=== PATIENT | male | born 1990 | race Two or more races ===

== ENCOUNTER 2024-05-20 16:38 | Emergency (ER) | payer MEDICAID, SELFPAY ==
[2024-05-20 16:39] VITALS: BMI 43.5
[2024-05-20 16:45] VITALS: BP 148/97; PULSE 84; RESP 20; TEMP 37.1; O2SAT 95
--- NOTE | 2024-05-20 17:05 | XR_ITS ---
Examination: Testicular sonography complete TECHNIQUE: Grayscale sonographic images testes, assessment arterial inflow and venous outflow, Doppler spectral analysis, color flow analysis Exam date and time: May 20, 2024 1746 hours INDICATIONS: Bilateral testicular pain beginning 3 weeks ago with lump on the right testicle noticed beginning 20 years ago FINDINGS: Right testis is 4.4 x 2.2 x 3.1 cm Epididymis 21 mm 13 mm epididymal cyst Arterial flow to the testicle. No testicular mass Moderate varicocele Small hydrocele Left testis 4.1 x 2.3 x 2.9 cm Epididymis 14 mm Arterial flow to the testicle. No testicular mass. Moderate varicocele Small hydrocele IMPRESSION: No testicular torsion or testicular mass Small benign epididymal cyst on the right Bilateral varicoceles
--- NOTE | 2024-05-20 17:16 | EDRME_ITS ---
Rapid Medical Screening Exam [facility] Arrival date/time: 05/20/24 16:38 This is a 34-year-old male comes in with complaints of testicular pain for the last 3 weeks. Patient reports a dull pain that has not gone away. Patient denies any urinary symptoms. Patient denies any past medical history. Chief Complaint: Urogenital-Male Time Seen by Provider: 05/20/24 17:04 Vital signs: Vital Signs Temperature 98.7 F 05/20/24 16:45 Pulse Rate 84 05/20/24 16:45 Respiratory Rate 20 05/20/24 16:45 Blood Pressure 148/97 H 05/20/24 16:45 Pulse Oximetry (%) 95 05/20/24 16:45 Oxygen Delivery Method Room Air 05/20/24 16:45
[2024-05-20 17:38] LABS: Collection Type, Urine Voided
[2024-05-20 17:44] LABS: Basophils # (Auto) 0.1 Thou/mm3 (0.0-0.2); Basophils % (Auto) 2 % (0-2.5); Eosinophils # (Auto) 0.6 Thou/mm3 (0.0-0.5); Eosinophils % (Auto) 7 % (0-10); Hematocrit 45.5 % (41.0-53.0); Hemoglobin 15.1 g/dL (13.5-16.0); Immature Granulocytes % (Auto) 0 % (0-0); Immature Granulocytes Auto 0.01 Thou/mm3 (0.00-0.00); Lymphocytes # (Auto) 2.9 Thou/mm3 (1.0-4.8); Lymphocytes % (Auto) 36 % (10-50); Mean Corpuscular HGB Conc 33.2 g/dl (31.0-37.0); Mean Corpuscular Hemoglobin 27.4 pg (25.0-35.0); Mean Corpuscular Volume 82 fL (80-100); Monocytes # (Auto) 0.4 Thou/mm3 (0.0-0.8); Monocytes % (Auto) 4 % (0-12); Neutrophils # (Auto) 4.3 Thou/mm3 (1.8-7.7); Neutrophils % (Auto) 52 % (37-80); Nucleated Red Blood Cell % 0 /100 WBC (0); Platelet Count 334 Thou/mm3 (140-440); Red Blood Count 5.52 Miln/mm3 (4.50-5.90); White Blood Count 8.3 Thou/mm3 (3.8-10.6)
[2024-05-20 17:50] LABS: Bacteria,Urine Rare; Bilirubin,Urine Negative (Negative); Blood,Urine 1+ (Negative); Clarity,Urine Clear (Clear/Hazy); Color,Urine Yellow (Lt Yel-Yel); Culture Indicated,Urine Not Indicated; Glucose, Urine Negative (Negative); Ketones,Urine Negative (Negative); Leukocyte Esterase,Urine Negative (Negative); Nitrite,Urine Negative (Negative); PH,Urine 5.5 (5.0-7.0); Protein,Urine 1+ (Neg - Trace); RBC,Urine 5 /hpf (0-3); Specific Gravity,Urine 1.037 (1.001-1.035); Squamous Epithelial Cell,Urine 1 /hpf (0-5); WBC,Urine 1 /hpf (0-5)
[2024-05-20 18:10] LABS: Alanine Aminotransferase 69 U/L (10-49); Albumin, Serum 4.5 gm/dL (3.5-5.0); Albumin/Globulin Ratio 1.6 (1.2-2.2); Alkaline Phosphatase 75 U/L (46-116); Anion Gap 11 (7-16); Aspartate Amino Transferase 23 U/L (0-34); BUN/Creatinine Ratio 11 Ratio (12-20); Bilirubin,Total 0.8 mg/dL (0.3-1.2); Blood Urea Nitrogen 11 mg/dL (9-23); Calcium 9.1 mg/dL (8.3-10.6); Calcium (Corrected) 9.1 mg/dL (8.5-10.1); Carbon Dioxide 24.1 mMol/L (20.0-31.0); Chloride 107 mMol/L (98-107); Estimated Creatinine Clearance 141.3 mL/min (>60); Globulin 2.8 gm/dL (2.3-3.5); Glucose 112 mg/dL (74-106); Osmolality,Calculated 283 (275-295); Potassium 3.5 mMol/L (3.4-5.1); Sodium 142 mMol/L (136-145); Total Protein 7.3 gm/dL (5.7-8.2); eGFR > 60 See Note
[2024-05-20] MEDS: METOCLOPRAMIDE INJ 5 MG/ML VIAL 2 ML 10 MG IM (20:54)
[2024-05-20] MEDS: KETOROLAC INJ 60 MG/2 ML VIAL IM (20:55)
--- NOTE | 2024-05-20 22:02 | PD.EDMALE ---
ED Male Genitalurinary RME/HPI General Chief complaint: Urogenital-Male Stated complaint: TESTICULAR PAIN, LUMP ON RIGHT TESTICLE Time Seen by Provider: 05/20/24 17:04 Arrival date/time: 05/20/24 16:38 This is a 34-year-old male comes in with complaints of testicular pain for the last 3 weeks. Patient reports a dull pain that has not gone away. Patient denies any urinary symptoms. Patient denies any past medical history. Patient denies engaging into anal sex. RME / HPI RME / HPI Narrative: 05/20/24 16:38 This is a 34-year-old male comes in with complaints of testicular pain for the last 3 weeks. Patient reports a dull pain that has not gone away. Patient denies any urinary symptoms. Patient denies any past medical history. Related Data Home Medications ?Medication ?Instructions ?Recorded ?Confirmed minerals 1 tab PO QDAY 04/07/21 04/07/21 omega 4-mmx-sol-fish oil 1,000 mg 1 cap PO QDAY 04/07/21 04/07/21 (120 mg-180 mg) capsule (Fish Oil) Previous Rx's ?Medication ?Instructions ?Recorded lidocaine HCl 2 % mucosal jelly 1 applic topical BID PRN pain #30 04/07/21 mL ibuprofen 800 mg tablet 800 mg PO TID PRN pain #30 tabs 01/01/23 metoclopramide HCl 10 mg tablet 10 mg PO .BID prn PRN nausea and 08/11/23 (Reglan) vomiting #20 tabs ibuprofen 800 mg tablet 800 mg PO Q6H PRN pain #14 tabs 05/20/24 Allergies Allergy/AdvReac Type Severity Reaction Status Date / Time No Known Allergies Allergy Verified 05/20/24 16:39 Review of Systems Review of Systems Systems Reviewed: All systems reviewed, normal except as documented Past Medical History Past Medical History CARDIAC: Negative Congestive Heart Failure RESPIRATORY: Negative Chronic Obstructive Pulmonary Disease (COPD) GENITOURINARY: Negative Renal Disease ENDOCRINE: Negative Diabetes Mellitus Type 1 or Diabetes Mellitus Type 2 HEMATOLOGIC: Negative Sickle Cell Disease Social History SMOKING STATUS: Never smoker SUBSTANCE USE: does not use Travel History EBOLA RISK: No ED Exam General General appearance: Present alert and in no apparent distress Head Head exam: Present atraumatic Eye Eye exam: Present normal appearance, PERRL and EOMI ENT ENT exam: Present normal exam, normal oropharynx and mucous membranes moist Neck Neck exam: Present normal inspection, full ROM and trachea midline Chest Chest inspection: Present normal inspection and symmetric chest wall rise Respiratory Respiratory exam: Present normal lung sounds bilaterally Cardiovascular Cardiovascular exam: Present regular rate, normal rhythm and normal heart sounds Abdominal Exam Abdominal exam: Present soft exam: Present other (No testicular tenderness no erythema) Extremities Exam Extremities exam: Present normal inspection and full ROM Back Exam Back exam: Present normal inspection and full ROM Neurological Exam Neurological exam: Present alert, oriented X3 and CN II-XII intact Psychiatric Psychiatric exam: Present normal affect and normal mood Skin Skin exam: Present warm, dry, intact and normal color Course Quality Measures none Orders Category Date Time Status US testicular Stat Exams 05/20/24 17:05 Completed CBC Stat Lab 05/20/24 17:23 Completed Comprehensive Metabolic Panel Stat Lab 05/20/24 17:23 Completed Urinalysis, C/S if Indicated Stat Lab 05/20/24 17:14 Completed HYDROcodone*/APAP 5/325 [[place] 5/325] Med 05/20/24 22:01 Discontinued 1 tab PO X1 ONE Ketorolac Inj [Toradol Inj] Med 05/20/24 17:04 Discontinued 60 mg IM X1 ONE Metoclopramide Inj [Reglan Inj] Med 05/20/24 17:04 Discontinued 10 mg IM X1 ONE cefTRIAXone [Rocephin] 1,000 mg Med 05/20/24 22:01 Discontinued Lidocaine 1% 20 ml [Xylocaine 1% 20 ML] 2.1 ml IM X1 Vital Signs Vital signs: Vital Signs Temperature 98.7 F 05/20/24 16:45 Pulse Rate 84 05/20/24 16:45 Respiratory Rate 20 05/20/24 16:45 Blood Pressure 148/97 H 05/20/24 16:45 Pulse Oximetry (%) 95 05/20/24 16:45 Oxygen Delivery Method Room Air 05/20/24 16:45 Urogenital - Male MDM Narrative MDM Narrative:: CBC unremarkable. CMP shows slightly elevated liver function. Urine shows some blood. Patient states he felt better upon's second assessment. Patient was having some pain to right testicle. Patient denies any anal sex or multiple sex partners however does have pain to the right testicle. Ultrasound negative. Patient does have some urgency and did have blood in his urine. Will culture his urine and send a GC chlamydia. I am going to treat patient for epididymitis patient given a dose of Rocephin. And will be started on doxycycline. Patient told to follow-up with a primary provider in 1 to 2 days. Come back to the emergency room if symptoms change or worsen. Patient told to follow-up with urine culture with primary provider. testicular us: FINDINGS: Right testis is 4.4 x 2.2 x 3.1 cm Epididymis 21 mm 13 mm epididymal cyst Arterial flow to the testicle. No testicular mass Moderate varicocele Small hydrocele Left testis 4.1 x 2.3 x 2.9 cm Epididymis 14 mm Arterial flow to the testicle. No testicular mass. Moderate varicocele Small hydrocele IMPRESSION: No testicular torsion or testicular mass Small benign epididymal cyst on the right Bilateral varicoceles Patient data External records reviewed:: [facility] previous records Clinical information provided by:: patient Social determinants that could affect healthcare access:: none Patient has the following chronic illnesses:: none How is presenting disease/condition affected by chronic disease/condition?: no chronic disease Evaluation data The following diagnostics were reviewed and interpreted by me:: lab results and radiology exam(s) Lab and/or radiology exams considered but not ordered:: none Interpretation Summary: see note Medications / Prescriptions Medications or Prescriptions considered but not ordered:: none Medication administrations:: Medication Administration History Discontinued Medications Hydrocodone Bitart/Acetaminophen (Hydrocodone/[place] 5/325 Tablet) 1 tab PO X1 ONE Stop: 05/20/24 22:02 Last Admin: 05/20/24 22:34 Dose: 1 tab Documented By: KG Ceftriaxone Sodium 1,000 mg/ (Lidocaine HCl 2.1 ml) 0 mg IM X1 ONE Stop: 05/20/24 22:02 Last Admin: 05/20/24 22:34 Dose: 1,000 mg Documented By: KG Ketorolac Tromethamine (Ketorolac Inj 60 Mg/2 Ml Vial) 60 mg IM X1 ONE Stop: 05/20/24 17:05 Last Admin: 05/20/24 20:55 Dose: 60 mg Documented By: KG Metoclopramide HCl (Metoclopramide Inj 5 Mg/Ml Vial 2 Ml) 10 mg IM X1 ONE; Protocol Stop: 05/20/24 17:05 Last Admin: 05/20/24 20:54 Dose: 10 mg Documented By: KG see mar Consultations Consultation(s) initiated? (list below): No Diagnosis Urogenital Male Differential Diagnosis: urinary tract infection, urethritis and epididymitis Most likely diagnosis given after review of the tests above:: uti Admission Indicated Admission indicated?: not indicated Admission Request Was there a request for admission?: No Disposition Plan Disposition Plan: Discharge Discharge Attestation Discharge Attestation: The patient and all family members were given an opportunity to ask questions and understood the discharge instructions. Discharge instructions specifically effects, indications for sooner follow up or return to the emergency department, and the expected course of current diagnosis. Patient condition: Stable Discharge Plan Plan Patient Disposition: HOME (Self Care) Patient condition on transfer: Stable Prescriptions/Referrals Prescriptions/Med Rec: New ibuprofen 800 mg tablet 800 mg PO Q6H PRN (Reason: pain) Qty: 14 0RF No Action Multi Minerals Tablet 1 tab PO QDAY omega 0-hwf-vvb-fish oil [Fish Oil] 1,000 mg (120 mg-180 mg) Capsule 1 cap PO QDAY lidocaine HCl 2 % jelly 1 applic topical BID MDD to rectum if pain PRN (Reason: pain) Qty: 30 0RF ibuprofen 800 mg tablet 800 mg PO TID PRN (Reason: pain) Qty: 30 0RF metoclopramide HCl [Reglan] 10 mg tablet 10 mg PO .BID prn PRN (Reason: nausea and vomiting) Qty: 20 0RF Referrals: Alverto Jaramillo MD [Primary Care Provider] - In 1 week Problem List Clinical Impression: Epididymitis, Hematuria, Elevated liver enzymes Patient/Caregiver Discharge Instructions Discharge Activity: activity as tolerated Education Materials: ED Epididymitis, ED Hematuria Additional Instructions: Please follow-up with urine culture with primary provider. Come back to the emergency room if symptoms change or worsen. Print Language: Greek Stand Alone Forms: Shirley Award Info., Patient Portal Info Letter PA/DIGITAL ACCOUNT MANAGER Supervising Physician PA/DIGITAL ACCOUNT MANAGER Supervising Physician: [email or web address]
[2024-05-20] MEDS: cefTRIAXone 1,000 MG, LIDOCAINE 1% 20 ML 2.1 ML IM (22:34)
[2024-05-20] MEDS: HYDROcodone/APAP 5/325 TABLET 1 TAB PO (22:34)
[2024-05-20 22:43] VITALS: BP 125/87; PULSE 58; RESP 20; TEMP 36.4; O2SAT 97
== END 2024-05-20 22:56 | disposition home or self-care (01) ==
PROVIDERS: Nurse Practitioner Family; Emergency Provider Emergency Medicine; PCP Family Medicine
DX: R74.8 Abnormal levels of other serum enzymes (principal)
CPT/HCPCS: 36415; 76870; 80053; 81001; 85025; 87081; 87086; 96372; 99284; J0696; J1885; J2765; J3490; A9270